=== PATIENT | female | born 1995 | race African-American/Black ===

== ENCOUNTER 2024-06-02 12:39 | Emergency (ER) | payer MEDICAID ==
[~2024-06-02] VITALS: Ht 175.3 cm; Wt 84.5 kg
[2024-06-02 12:51] VITALS: BP 140/90; PULSE 88; RESP 18; TEMP 98.7
[2024-06-02] MEDS ORDERED: DOXY-354 PO (13:21)
== END 2024-06-02 13:34 | disposition home or self-care (01) ==
LOC: EMS 12:39
DX: L03.032 Cellulitis of left toe (principal); Z98.890 Other specified postprocedural states
CPT/HCPCS: 99283; Z7502